=== PATIENT | female | born 1950 | race Caucasian/White ===

== ENCOUNTER 2020-09-15 17:45 | Emergency (ER) | payer MEDICARE ==
[~2020-09-15] VITALS: Ht 170.2 cm; Wt 107.5 kg
--- NOTE | 2020-09-15 18:04 | NUR ---
Pt reports she has been having dizzy spells for a couple weeks. Denies nausea, vomitting.
--- NOTE | 2020-09-15 18:10 | NUR ---
Pt hooked up to monitor.
--- NOTE | 2020-09-15 18:20 | NUR ---
Strength strong and equal bilaterally throughout. Sensation intact throughout. Smile symmetrical, sticks out tongue and symetric. AARON.
--- NOTE | 2020-09-15 18:22 | NUR ---
Dr. Whittington at bedside.
[2020-09-15 18:53] LABS: BASOPHILS % (AUTO) 1 % (0-1); EOSINOPHILS % (AUTO) 3 % (1-7); LYMPHOCYTES % (AUTO) 29 % (22-44); MEAN CORPUSCULAR HEMOGLOBIN 31.1 pg (27.0-34.8); MEAN PLATELET VOLUME 8.2 fL (7.4-10.4); MONOCYTES % (AUTO) 7 % (2-9); NEUTROPHILS % (AUTO) 61 % (42-75); PLATELET COUNT 283 x10^3/uL (130-400); RED BLOOD COUNT 4.58 x10^6/uL (3.82-5.3); RED CELL DISTRIBUTION WIDTH 13.3 % (9.6-15.2)
[2020-09-15 18:55] LABS: MD NO
[2020-09-15 18:58] LABS: ALANINE AMINOTRANSFERASE 41 U/L (12-78); ALBUMIN 3.8 g/dL (3.4-5.0); ANION GAP 6 mmol/L (5-15); CALCIUM 9.1 mg/dL (8.5-10.1); CHLORIDE 110 mmol/L (98-107); CREATININE 0.95 mg/dL (0.55-1.02)
[2020-09-15 19:00] LABS: ALKALINE PHOSPHATASE 94 U/L (45-117); BILIRUBIN,TOTAL 0.5 mg/dL (0.2-1.0); TOTAL PROTEIN 7.2 g/dL (6.4-8.2)
--- NOTE | 2020-09-15 19:00 | NUR ---
Pt back from imaging.
[2020-09-15 19:53] VITALS: BP 160/77
--- NOTE | 2020-09-15 19:58 | NUR ---
Pt agrees with and understands discharge plan and instructions.
== END 2020-09-15 20:11 | disposition home or self-care (01) ==
LOC: ED 20:03
DX: R42 Dizziness and giddiness (principal); R94.31 Abnormal electrocardiogram [ECG] [EKG]; R51.9 Headache, unspecified
CPT/HCPCS: 36415; 70450; 80053; 82962; 85025; 93005; 99285